=== PATIENT | female | born 1945 | race Caucasian/White ===

== ENCOUNTER 2019-03-02 20:17 | Emergency (ER) | payer MEDICARE ==
--- NOTE | 2019-03-02 20:40 | Emergency Department Record ---
History of Present Illness - General Chief Complaint: Fall Injury Stated Complaint: FALL/STERNUM HURTS Time Seen by Provider: 03/02/19 20:24 Source: Patient Mode of Arrival: Ambulatory Limitations: No limitations - History of Present Illness Initial Comments: 73 yo female presents to ED for evaluation following an injury to the mid-chest wall following a [id number] while carrying boxes around 9:00 AM this morning. Patient reports taking ASA (3 pills) with improvement in her symptoms, reports pain with elevation of the arms and with deep inspiration. Patient denies injury to the head, neck, or other injury on examination. Patient does not take anticoagulation medications are her baseline. MD Complaint: Fall Onset/Timin -: Hour(s) Fall From: Standing When Fall Occurred: Other (12 hours ago) Fall Witnessed: Yes, by family Place Fall Occurred: Home Loss of Consciousness: None Prolonged Down Time?: No Symptoms Prior to Fall: None Location: Chest Severity: Moderate Severity scale (1-10): 8 Quality: Stabbing Associated Symptoms: Denies - [place] Coma Scale Eye Response: (4) Open spontaneously Motor Response: (6) Obeys commands Verbal Response: (5) Oriented [place] Total: 15 - Related Data Allergies Allergy/AdvReac Type Severity Reaction Status Date / Time Sulfa (Sulfonamide Allergy RASH Verified 03/02/19 20:33 Antibiotics) Travel Screening - Travel/Exposure Within Last 30 Days Have you traveled within the last 30 days?: No - Travel/Exposure Within Last Year Have you traveled outside the [place] in the last year?: No - Additonal Travel Details Have you been exposed to anyone with a communicable illness?: No - Travel Symptoms Symptom Screening: None Review of Systems Constitutional: Denies: Chills, Fever, Malaise, Night sweats Eyes: Denies: Eye discharge, Eye pain ENT: Denies: Congestion, Ear pain, Epistaxis Respiratory: Denies: Cough, Dyspnea Cardiovascular: Reports: Chest pain. Denies: Dyspnea on exertion, Palpitations Endocrine: Denies: Fatigue, Heat or cold intolerance Gastrointestinal: Denies: Abdominal pain, Nausea, Vomiting Genitourinary: Denies: Incontinence, Retention Musculoskeletal: Denies: Arthralgia, Back pain Skin: Denies: Bruising, Change in color Neurological: Denies: Abnormal gait, Confusion, Headache, Seizure Psychiatric: Denies: Anxiety Hematological/Lymphatic: Denies: Anemia, Blood Clots Past Medical History - SOCIAL HISTORY Smoking Status: Never smoker Alcohol Use: None Drug Use: None Family Medical History Any Significant Family History?: No Physical Exam - General General Appearance: Alert, Oriented x3, Cooperative, Mild distress Limitations: No limitations - Head Head exam: Atraumatic, Normocephalic, Normal inspection Head exam detail: negative: Abrasion, Contusion, Giron's sign, General tenderness, Hematoma, Laceration - Eye Eye exam: Normal appearance. negative: Conjunctival injection, Periorbital swelling, Periorbital tenderness, Scleral icterus - ENT Ear exam: negative: Auricular hematoma, Auricular trauma Nasal Exam: negative: Active bleeding, Discharge, Dried blood, Foreign body Mouth exam: negative: Drooling, Laceration, Muffled voice, Tongue elevation - Neck Neck exam: Normal inspection. negative: Meningismus, Tenderness - Respiratory Respiratory exam: Normal lung sounds bilaterally, Chest wall tenderness. negative: Respiratory distress, Rhonchi, Stridor - Cardiovascular Cardiovascular Exam: Regular rate, Normal rhythm, Normal heart sounds - GI/Abdominal GI/Abdominal exam: Soft. negative: Rebound, Rigid, Tenderness - Rectal Rectal exam: Deferred - exam: Deferred - Extremities Extremities exam: Normal inspection. negative: Pedal edema, Tenderness - Back Back exam: Denies: CVA tenderness (R), CVA tenderness (L) - Neurological Neurological exam: Alert, Normal gait, Oriented X3 - Psychiatric Psychiatric exam: Normal affect, Normal mood - Skin Skin exam: Normal color. negative: Abrasion Type of lesion: negative: abrasion Course Vital Signs 03/02/19 20:25 Temperature 98.1 F Pulse Rate 52 L Respiratory 16 Rate Blood Pressure 190/99 Pulse Ox 99 - Reevaluation(s) Reevaluation #1: 03/02/19 21:12 CT Chest w/o contrast: No acute sternum/rib fractures on examination Patient was updated on all results, denies the need for analgesia on repeat examination. Patient was counseled re: symptomatic care as directed. Patient appears stable for discharge at this time. Disposition Disposition: Discharge Clinical Impression: Chest wall contusion Qualifiers: Encounter type: initial encounter Laterality: unspecified laterality Qualified Code(s): S20.219A - Contusion of unspecified front wall of thorax, initial encounter Disposition: Home, Self-Care Condition: (2) Stable Instructions: Chest Wall Pain (ED) Additional Instructions: Return to ED if your symptoms worsen or if you have any concerns. (medication) as directed. Follow-up with your family doctor in 3-5 days as directed. Forms: Patient Portal Access Time of Disposition: 21:14 Quality - Quality Measures Quality Measures: N/A - Blood Pressure Screening Does Patient Have Any of the Following: Active Dx of HTN Blood Pressure Classification: Hypertensive Reading Systolic Measurement: 190 Diastolic Measurement: 99 Screening for High Blood Pressure: Patient Exclusion, Hx of HTN [[id number]]
--- NOTE | 2019-03-02 21:12 | CT SCAN REPORT ---
EXAMINATION: CT Chest without IV Contrast EXAM DATE: 03/02/2019 9:02 PM TECHNIQUE: Standard protocol CT images of the chest were performed without intravenous contrast. Lac k of intravenous contrast does limit assessment of the vascular structures and soft tissues. Coronal and sagittal images were reconstructed. INDICATION: chest injury COMPARISON: None ENCOUNTER: Initial CHEST FINDINGS: Base of Neck & Axillae: There is no adenopathy. Mediastinum & [place]: There is no mediastinal or hilar adenopathy. Cardiovascular: The heart has a normal size. There is no pericardial effusion. The thoracic aorta an d main pulmonary artery have a normal caliber. Tracheobronchial Structures: There is no bronchial wall thickening or bronchiectasis. Lung Parenchyma: 3 mm juxtapleural nodule at the left lung apex which is likely benign. Lungs are ciaran ar. Pleural Space: There are no pleural effusions. There is no pneumothorax. Upper Abdomen: Small hiatal hernia. Moderate fecal material throughout the colon. Chest Wall & Musculoskeletal: No suspicious bone lesions. No sternal fracture. No obvious rib fractur es. Vertebral body stature is preserved. 3-D Imaging at an Independent Workstation: Not performed. Assessment of the soft tissues and vascular structures is overall limited on noncontrast imaging, IMPRESSION: 1. No acute intrathoracic process. No sternal fracture or rib fracture identified. Dictated by: Daniel Zayas MD on 03/02/2019 9:06 PM. .
== END 2019-03-02 21:18 | disposition home or self-care (01) ==
LOC: ER 20:17
DX: S20.219A Contusion of unspecified front wall of thorax, initial encounter (principal); W01.198A Fall on same level from slipping, tripping and stumbling with subsequent striking against other object, initial encounter; Y92.009 Unspecified place in unspecified non-institutional (private) residence as the place of occurrence of the external cause
CPT/HCPCS: 71250; 99284